=== PATIENT | male | born 1935 | race Caucasian/White ===

== ENCOUNTER 2017-02-26 13:24 | Inpatient (IN) | payer MEDICARE, BC ==
[~2017-02-26] VITALS: Ht 175.3 cm; Wt 83.9 kg
[2017-02-26] MEDS ORDERED: MAG HYDROX/AL HYDROX/SIMETH 30 ML LIQUID UDC PO ONE (13:45)
[2017-02-26] MEDS ORDERED: LIDOCAINE VISCUS 2% 15 ML UDC MM ONE (13:45)
[2017-02-26] MEDS ORDERED: ASPIRIN 81 MG TAB.CHEW PO ONE (13:45)
[2017-02-26 13:56] LABS: BASOPHILS % (AUTO) 0.2 % (0.0-2.0); HEMOGLOBIN 18.3 g/dL (12.5-16.3); LYMPHOCYTES % (AUTO) 5.5 % (20.5-51.5); MEAN CORPUSCULAR HEMOGLOBIN 32.5 uug (23.8-33.4); MEAN CORPUSCULAR HGB CONC 35 g/dL (32.5-36.3); MEAN CORPUSCULAR VOLUME 94.4 fL (73.0-96.2); MONOCYTES # (AUTO) 1.4 K/uL (2.0-10.0); MONOCYTES % (AUTO) 7.4 % (0.0-11.0); NEUTROPHILS # (AUTO) 16.6 K/uL (1.8-8.9); NEUTROPHILS % (AUTO) 86.9 % (38.5-71.5); PLATELET COUNT (AUTO) 171 K/uL (152-348); RED BLOOD CELL COUNT(AUTO) 5.61 MIL/uL (4.06-5.63)
[2017-02-26 13:58] LABS: WHITE BLOOD COUNT (AUTO) 19.1 K/uL (3.6-10.2)
[2017-02-26 14:00] LABS: CARBON DIOXIDE 27 mmol/L (21-32); CHLORIDE 101 mmol/L (98-107); CREATININE 2.3 mg/dL (0.6-1.3); GLUCOSE 241 mg/dL (74-106); POTASSIUM 4.8 mmol/L (3.5-5.1); UREA NITROGEN, BLOOD 32 mg/dL (7-18)
[2017-02-26] MEDS ORDERED: ASPIRIN 81 MG TAB.CHEW ONE (14:08)
[2017-02-26] MEDS ORDERED: LIDOCAINE VISCUS 2% 15 ML UDC ONE (14:08)
[2017-02-26] MEDS ORDERED: MAG HYDROX/AL HYDROX/SIMETH 30 ML LIQUID UDC ONE (14:08)
[2017-02-26] MEDS ORDERED: IV NORMAL SALINE 500 ML BAG IV ONE (14:15)
[2017-02-26 14:17] LABS: ALANINE AMINOTRANSFERASE 25 U/L (16-63); ALKALINE PHOSPHATASE 68 U/L (50-136); ASPARTATE AMINOTRANSFERASE 19 U/L (15-37); BILIRUBIN,DIRECT 0.3 mg/dL (0.0-0.2); BILIRUBIN,TOTAL 2.1 mg/dL (0.2-1.0); TOTAL PROTEIN, SERUM 8.2 g/dL (6.4-8.2)
[2017-02-26] MEDS ORDERED: RANO10003 PO (14:28)
[2017-02-26] MEDS ORDERED: ROSU10TA PO (14:28)
[2017-02-26] MEDS ORDERED: ASPI81TA31 PO (14:28)
[2017-02-26] MEDS ORDERED: OMEG1CAP PO (14:28)
[2017-02-26] MEDS ORDERED: AMLO5TAB2 PO (14:28)
[2017-02-26] MEDS ORDERED: SUPER B COMPLEX PO (14:28)
[2017-02-26] MEDS ORDERED: TAMS-3 PO (14:28)
[2017-02-26] MEDS ORDERED: CHOL10005 PO (14:28)
[2017-02-26] MEDS ORDERED: RANI-563 PO (14:28)
[2017-02-26] MEDS ORDERED: VALS320T2 PO (14:28)
[2017-02-26] MEDS ORDERED: LACT1CAP71 PO (14:28)
[2017-02-26] MEDS ORDERED: EMPA1TAB9 PO (14:28)
[2017-02-26] MEDS ORDERED: IMDUR PO (14:28)
[2017-02-26] MEDS ORDERED: ZOLP5TAB2 PO (14:28)
[2017-02-26 14:30] LABS: BAND % (MANUAL) 5 % (0-10); LYMPHOCYTES % (MANUAL) 5 % (20-40); MONOCYTES % (MANUAL) 6 % (2-10); NEUTROPHILS % (MANUAL) 84 % (42-75)
[2017-02-26 14:42] LABS: *BILIRUBIN,URIN NEGATIVE (NEGATIVE); *BLOOD, URINE Trace-lysed (NEGATIVE); *CLARITY,URINE CLEAR (CLEAR); *COLOR,URINE YELLOW (YELLOW); *KETONES,URINE 1+ (NEGATIVE); *PROTEIN,URINE 2+ (NEGATIVE); *UROBILINOGEN,URINE 0.2 E.U./dl (NORMAL); LEUKOCYTE ESTERASE ,URINE NEGATIVE (NEGATIVE); NITRITE, URINE NEGATIVE (NEGATIVE)
[2017-02-26 14:48] LABS: UGLUCOSE 2+ (NEGATIVE)
[2017-02-26 14:56] LABS: BACTERIA,URINE FEW /HPF (NONE SEEN); SQUAMOUS EPITHELIAL CELL,UR FEW /HPF (NONE SEEN)
[2017-02-26] MEDS ORDERED: ACETAMINOPHEN 325 MG TABLET PO PRN (15:00)
[2017-02-26] MEDS ORDERED: ONDANSETRON 4 MG/2 ML VIAL IV PRN (15:00)
--- NOTE | 2017-02-26 15:00 | NUR ---
Patient is resting comfortably on gurney while looking at his personal electronic device, NAD, no acute change in condition seen
[2017-02-26] MEDS ORDERED: DEXTROSE 50% 50 ML DISP.SYRIN IV PRN (15:45)
--- NOTE | 2017-02-26 15:47 | NUR ---
1535: DEJUAN [place] is at bedside & evaluating the patient.
[2017-02-26] MEDS ORDERED: NITROGLYCERIN 0.4 MG/TAB BOTTLE SL PRN (16:00)
[2017-02-26 16:04] VITALS: BP 160/80
[2017-02-26] MEDS ORDERED: CLONIDINE HCL 0.1 MG TABLET PO PRN (16:30)
[2017-02-26] MEDS: BLOOD SUGAR DIAGNOSTIC 1 EACH STRIP VI SCH ×2 (16:30→20:34)
--- NOTE | 2017-02-26 17:26 | NUR ---
pt received at 1600 from ER reporting nurse Ann LOPEZ. pt came in with a diagnosis of cchest pain. no chest pain noted when asked. pt vitals stable. all pertinent assessments, hx and general questions done. pt given smoking educatin and verbalizes understanding. pt recevied flu shot but has pneumonia shot scheduled in april. pt has no sob. pt labs drawn and charted. pt had echo done. awaiting results. pt has Left AC 20g. all belongings reconciled and put to asa.t no new injuries noted. pt states that he has indigestion and took a first bite of dinner and had chest pain for a few seconds. will await new orders.
[2017-02-26] MEDS: INSULIN REGULAR, HUMAN 300 UNIT/3 ML VIAL SQ PRN ×2 (17:37→20:36)
[2017-02-26] MEDS: OMEGA-3 FATTY ACIDS/FISH OIL CAPSULE PO SCH (17:37)
--- NOTE | 2017-02-26 17:45 | NUR ---
pt refused accu checks and humulin. pt rejects that he has history of dm. however pt state that he has prediabetes takes own medications from home. pt also had bp of 163/88. pt given catepres as ordered for bp >160. will reassess vitals.
[2017-02-26 20:00] VITALS: BP 126/71
[2017-02-26] MEDS: RANOLAZINE 500 MG TAB.ER.12H PO SCH (20:36)
[2017-02-26] MEDS: ATORVASTATIN 20 MG TABLET PO SCH (20:36)
--- NOTE | 2017-02-26 21:00 | NUR ---
PT'S A/A/O X4,NEWLY ADMISSION TODAY IN THE AFTERNOON W/DX OF CHEST PAIN,PER AM SHIFT RN REPORT STATED THAT PT REFUSED TO GET ANY ACCUCHECK AND INSULIN;REEDUCATED TO PT FOR DM EDUCATION;PT STATED THAT"I CHANGED MY MIND.I'LL GET TO CHECK BLOOD SUGAR AND INSULIN IF I NEED IT";UPDATED THE PLAN OF CARE TO PT;HE VERBALIZED UNDERSTANDING AND COOPERATIVE.PT DENIED OF PAIN OR ANY DISCOMFORT.TELEMETRY'S SR 88/MIN.CONTINUED MONITORING TO PT.
[2017-02-26] MEDS: ZOLPIDEM 5 MG TABLET PO PRN (21:38)
[2017-02-27] VITALS: BP 114/78
--- NOTE | 2017-02-27 | NUR ---
PT'S COMFORTABLE ON BED;DENIED OF PAIN OR ANY DISCOMFORT NOTED.KEPT COMFORT.CALL-LIGHT WITHIN REACH.TELEMETRY'S SR 90/MIN NOTED.
--- NOTE | 2017-02-27 01:40 | NUR ---
PT C/O ABDOMINAL PAIN,MOSTLY IT'S EPIGASTRIC PAIN 11/24;MORPHINE 2 MG IVP X1 TO PT;EDUCATED AND CONTINUED MONITORING TO PT.TELEMETRY'S SR 84/MIN.AFTER PT GOT FOR 15 MINUTES;PT WENT BACK TO SLEEP.CONTINUED MONITORING TO PT.
[2017-02-27] MEDS: MORPHINE SULFATE 2 MG/1 ML DISP.SYRIN IV PRN ×5 (01:41→21:38)
[2017-02-27 04:00] VITALS: BP 152/81
[2017-02-27] MEDS: PANTOPRAZOLE SODIUM 40 MG TABLET.DR PO SCH (06:07)
--- NOTE | 2017-02-27 06:15 | NUR ---
PT'S COMFORTABLE ON BED,DENIED OF PAIN AT THIS TIME.EDUCATED TO PT FOR KAN'S POSITION;PT AGREED AND STATED THAT IT'S BETTER.TELEMETRY'S SR 84/MIN W/RARELY OCCASIONAL PVC,PAC(PER SET UP AND CHARGER.).NO DISTRESS NOTED IN THE SHIFT,NO CHEST PAIN'S SEEN,PT STATED THAT IT'S EPIGASTRIC PAIN NOTED.CONTINUED MONITORING TO PT.
[2017-02-27] MEDS: BLOOD SUGAR DIAGNOSTIC 1 EACH STRIP VI SCH ×4 (06:35→20:33)
[2017-02-27 06:57] LABS: ALANINE AMINOTRANSFERASE 19 U/L (16-63); ALKALINE PHOSPHATASE 57 U/L (50-136); ASPARTATE AMINOTRANSFERASE 23 U/L (15-37); BILIRUBIN,TOTAL 1.8 mg/dL (0.2-1.0); CARBON DIOXIDE 24 mmol/L (21-32); CHLORIDE 101 mmol/L (98-107); CHOLESTEROL 119 mg/dL (<200); CREATININE 1.6 mg/dL (0.6-1.3); GLUCOSE 161 mg/dL (74-106); HDL CHOLESTEROL 55 mg/dL (40-60); MAGNESIUM 1.6 mg/dL (1.8-2.4); PHOSPHOROUS 2.4 mg/dL (2.5-4.9); POTASSIUM 4.2 mmol/L (3.5-5.1); TOTAL PROTEIN, SERUM 7.2 g/dL (6.4-8.2); TRIGLYCERIDES 149 MG/DL (30-150); UREA NITROGEN, BLOOD 28 mg/dL (7-18)
[2017-02-27 07:08] LABS: THYROID STIMULATING HORMONE 1.256 mIU/mL (0.358-3.740)
[2017-02-27 07:57] LABS: HEMATOCRIT 49.2 % (40-50); HEMOGLOBIN 17.2 G/DL (14.0-18.0); LYMPHOCYTES # (AUTO) 0.9 K/UL (0.8-4.8); LYMPHOCYTES % (AUTO) 4.9 % (20.5-51.5); MEAN CORPUSCULAR HGB CONC 35 g/dL (32.0-37.0); MEAN CORPUSCULAR VOLUME 94.2 FL (82.0-92.0); MONOCYTES # (AUTO) 1.6 K/UL (0.1-1.30); MONOCYTES % (AUTO) 8.2 % (0.0-11.0); NEUTROPHILS # (AUTO) 16.7 K/UL (1.8-8.9); NEUTROPHILS % (AUTO) 86.9 % (38.5-71.5); PLATELET COUNT (AUTO) 157 K/UL (150-450); RED BLOOD CELL COUNT(AUTO) 5.22 MIL/UL (4.7-6.1); WHITE BLOOD COUNT (AUTO) 19.2 K/UL (4.0-11.2)
[2017-02-27] MEDS ORDERED: Medication Not On Formulary EA (Lactobacillus Combo No.11 (Probiotic) 1 EACH) PO SCH (09:00)
[2017-02-27] MEDS ORDERED: EMPAGLIFLOZIN PO SCH (09:00)
[2017-02-27] MEDS ORDERED: RANITIDINE HCL 150 MG PO SCH (09:00)
[2017-02-27] MEDS ORDERED: Medication Not On Formulary EA (Rosuvastatin Calcium (Crestor) 1 TAB) PO SCH (09:00)
[2017-02-27] MEDS ORDERED: METFORMIN HCL PO SCH (09:00)
[2017-02-27] MEDS ORDERED: ASPIRIN 81 MG TAB.CHEW PO SCH (09:00)
[2017-02-27] MEDS ORDERED: [UNRECOGNIZED DRUG - OTHER] PO SCH (09:00)
[2017-02-27] MEDS ORDERED: Medication Not On Formulary EA (Cholecalciferol (Vitamin D3) (Vitamin D CAPSULE) 1 CAP) PO SCH (09:00)
[2017-02-27] MEDS: ASPIRIN EC 325 MG TABLET.DR PO SCH (09:34)
[2017-02-27] MEDS: ISOSORBIDE MONONITRATE 60 MG TAB.SR.24H PO SCH (09:35)
[2017-02-27] MEDS: OMEGA-3 FATTY ACIDS/FISH OIL CAPSULE PO SCH ×2 (09:36→17:52)
[2017-02-27] MEDS: TAMSULOSIN HCL 0.4 MG CAP.SR.24H PO SCH (09:36)
[2017-02-27] MEDS: AMLODIPINE 5 MG TABLET PO SCH (09:36)
[2017-02-27] MEDS: CHOLECALCIFEROL 1,000 UNIT TABLET PO SCH (09:36)
[2017-02-27] MEDS: LACTOBACILLUS RHAMNOSUS GG 1 EACH CAPSULE PO SCH (09:37)
[2017-02-27] MEDS: VALSARTAN 160 MG TABLET PO SCH (09:37)
[2017-02-27] MEDS: RANOLAZINE 500 MG TAB.ER.12H PO SCH ×2 (09:38→20:37)
[2017-02-27] MEDS ORDERED: NEUTRA PHOS PACKET PO ONE (10:15)
[2017-02-27] MEDS ORDERED: MAGNESIUM SULFATE/D5W 100 ML IV SCH (10:15)
[2017-02-27] MEDS ORDERED: MAG HYDROX/AL HYDROX/SIMETH 30 ML LIQUID UDC PO ONE (11:00)
[2017-02-27 11:54] VITALS: BP 126/69
[2017-02-27 12:05] LABS: BAND % (MANUAL) 10 % (0-10); LYMPHOCYTES % (MANUAL) 5 % (20-40); MONOCYTES % (MANUAL) 9 % (2-10); NEUTROPHILS % (MANUAL) 76 % (42-75)
[2017-02-27] MEDS: INSULIN REGULAR, HUMAN 300 UNIT/3 ML VIAL SQ PRN ×3 (13:08→20:37)
[2017-02-27] MEDS ORDERED: MAG30ORA PO (14:20)
[2017-02-27] MEDS ORDERED: MAG HYDROX/AL HYDROX/SIMETH 30 ML LIQUID UDC PO PRN (14:30)
[2017-02-27 15:29] VITALS: BP 83/52
--- NOTE | 2017-02-27 18:00 | NUR ---
Pt resting in bed and getting up to bathroom with standby assist. Tele rythm remains NSR. Pt. medicated with Morphine IV with good effect for the epigastric pain. Pt. encouraged to drink and eat soft foods and also encourage to do active ROM in bed. Voiding well. Denies cp or sob.
[2017-02-27 19:08] LABS: *AMPHETAMINE, URINE NEGATIVE (NEGATIVE); *BARBITURATE, URINE NEGATIVE (NEGATIVE); *CANNABINOID, URINE POSITIVE (NEGATIVE); *COCCAINE, URINE NEGATIVE (NEGATIVE); *OPIATE, URINE NEGATIVE (NEGATIVE); *PHENCYCLIDINE SCREEN,URINE NEGATIVE (NEGATIVE)
--- NOTE | 2017-02-27 19:10 | NUR ---
Received patient in bed, awake, watching TV at this time. Denies any pain/discomforts. Continue current plan of care.
[2017-02-27] MEDS ORDERED: IV NORMAL SALINE 500 ML BAG IV STA (20:15)
--- NOTE | 2017-02-27 20:15 | NUR ---
BP on the 80's, asymptomatic. made aware with order to give NS 500ml IV bolus stat.
[2017-02-27] MEDS ORDERED: IV NORMAL SALINE 500 ML IV ONE (20:30)
[2017-02-27] MEDS: ATORVASTATIN 20 MG TABLET PO SCH (20:37)
[2017-02-27 20:42] VITALS: BP 103/60
--- NOTE | 2017-02-27 21:20 | NUR ---
BP rechecked 103/69.
--- NOTE | 2017-02-27 21:35 | NUR ---
Medicated for complaint of CP non radiating in scale of 6/10. will monitor.
--- NOTE | 2017-02-27 22:05 | NUR ---
Sleeping at this time. No s/s of pain/discomforts presented.
[2017-02-28] VITALS: BP 94/54
[2017-02-28 04:00] VITALS: BP 93/60
--- NOTE | 2017-02-28 05:23 | NUR ---
Slept well. No further complaint presented. BP on the mid 90's. Converted to [facility]. All needs attended and met. Continue current plan of care.
[2017-02-28] MEDS: BLOOD SUGAR DIAGNOSTIC 1 EACH STRIP VI SCH ×4 (05:53→20:20)
[2017-02-28] MEDS: PANTOPRAZOLE SODIUM 40 MG TABLET.DR PO SCH (05:53)
[2017-02-28] MEDS: MORPHINE SULFATE 2 MG/1 ML DISP.SYRIN IV PRN ×4 (06:03→22:23)
--- NOTE | 2017-02-28 06:10 | NUR ---
Awakened complaining of chest pain, non radiating, morphine requested, given as needed and ordered.
[2017-02-28 06:47] LABS: BASOPHILS % (AUTO) 0.1 % (0.0-2.0); EOSINOPHILS % (AUTO) 0.3 % (0.0-7.0); HEMATOCRIT 46.3 % (40-50); LYMPHOCYTES # (AUTO) 1.2 K/UL (0.8-4.8); LYMPHOCYTES % (AUTO) 8.8 % (20.5-51.5); MEAN CORPUSCULAR HEMOGLOBIN 32.4 UUG (27.0-31.0); MEAN CORPUSCULAR HGB CONC 35 g/dL (32.0-37.0); MEAN CORPUSCULAR VOLUME 93.8 FL (82.0-92.0); MONOCYTES # (AUTO) 1.4 K/UL (0.1-1.30); MONOCYTES % (AUTO) 10.1 % (0.0-11.0); NEUTROPHILS # (AUTO) 10.9 K/UL (1.8-8.9); NEUTROPHILS % (AUTO) 80.7 % (38.5-71.5); PLATELET COUNT (AUTO) 134 K/UL (150-450); RED BLOOD CELL COUNT(AUTO) 4.94 MIL/UL (4.7-6.1)
[2017-02-28 06:50] LABS: ALANINE AMINOTRANSFERASE 17 U/L (16-63); ALKALINE PHOSPHATASE 55 U/L (50-136); ASPARTATE AMINOTRANSFERASE 14 U/L (15-37); BILIRUBIN,TOTAL 1.8 mg/dL (0.2-1.0); CARBON DIOXIDE 26 mmol/L (21-32); CHLORIDE 101 mmol/L (98-107); CREATININE 1.7 mg/dL (0.6-1.3); GLUCOSE 144 mg/dL (74-106); PHOSPHOROUS 2.7 mg/dL (2.5-4.9); POTASSIUM 3.8 mmol/L (3.5-5.1); TOTAL PROTEIN, SERUM 6.5 g/dL (6.4-8.2); UREA NITROGEN, BLOOD 28 mg/dL (7-18)
[2017-02-28 07:15] LABS: WHITE BLOOD COUNT (AUTO) 13.6 K/UL (4.0-11.2)
--- NOTE | 2017-02-28 07:16 | NUR ---
Received patient asleep, lying on bed on a semi- goodman's position, easily aroused with no SOB distress or discomforts noted. all needs attended and anticipated call light within reach. Will continue to monitor closely.
[2017-02-28] MEDS: OMEGA-3 FATTY ACIDS/FISH OIL CAPSULE PO SCH ×2 (08:49→16:59)
[2017-02-28] MEDS: CHOLECALCIFEROL 1,000 UNIT TABLET PO SCH (08:50)
[2017-02-28] MEDS: ASPIRIN EC 325 MG TABLET.DR PO SCH (08:50)
[2017-02-28] MEDS: RANOLAZINE 500 MG TAB.ER.12H PO SCH ×2 (08:50→20:14)
[2017-02-28] MEDS: LACTOBACILLUS RHAMNOSUS GG 1 EACH CAPSULE PO SCH (08:50)
[2017-02-28] MEDS: TAMSULOSIN HCL 0.4 MG CAP.SR.24H PO SCH (08:50)
[2017-02-28] MEDS: ISOSORBIDE MONONITRATE 60 MG TAB.SR.24H PO SCH (09:00)
[2017-02-28] MEDS: AMLODIPINE 5 MG TABLET PO SCH (09:00)
[2017-02-28] MEDS: VALSARTAN 160 MG TABLET PO SCH (09:00)
[2017-02-28] MEDS ORDERED: HEPARIN SODIUM,PORCINE 5,000 UNITS/ML VIAL SQ SCH (10:00)
--- NOTE | 2017-02-28 10:01 | NUR ---
Patient was seen and examined by Latonia James NP with new orders for CT Scan Abdomen/ Pelvis without contrast, Heparin and discontinue Aspirin. patient made aware and agreed to perform the procedure. Orders noted and carried out.
--- NOTE | 2017-02-28 10:21 | NUR ---
Patient awake alert and oriented was picked up by Radiology department for his CT Scan of Abdomen/ Pelvis without contrast as ordered in stable condition, no SOB, distress or discomforts.
--- NOTE | 2017-02-28 10:45 | NUR ---
Patient came back from radiology department via wheelchair accompanied by Radiology staff in stable condition, No SOB or distress noted. Will continue to monitor closely.
[2017-02-28 11:30] VITALS: BP 114/61
[2017-02-28] MEDS ORDERED: LIDOCAINE VISCUS 2% 15 ML UDC PO PRN (12:15)
[2017-02-28] MEDS ORDERED: MAG HYDROX/AL HYDROX/SIMETH 30 ML LIQUID UDC PO PRN (12:15)
[2017-02-28] MEDS: PIPERACILLIN/TAZOBACTAM/D5W 3.375 G in PREMIXED 1 EACH IV SCH ×2 (12:16→20:02)
[2017-02-28] MEDS: INSULIN REGULAR, HUMAN 300 UNIT/3 ML VIAL SQ PRN ×3 (12:52→20:22)
--- NOTE | 2017-02-28 15:44 | NUR ---
Rounds done, patient noted asleep, lying on bed on a semi- goodman's position, easily aroused, no moaning, facial grimace or distress noted. All needs were attended and anticipated. Call light within reach.Will continue to monitor closely.
[2017-02-28 15:57] VITALS: BP 107/63
--- NOTE | 2017-02-28 16:00 | NUR ---
Received CT Scan Abd/ Pelvis without contrast result. called Latonia James NP and reported the result.
[2017-02-28] MEDS ORDERED: RIVAROXABAN 10 MG TABLET PO SCH (18:00)
[2017-02-28] MEDS ORDERED: RIVAROXABAN 15 MG TABLET PO SCH (18:00)
--- NOTE | 2017-02-28 18:39 | NUR ---
Patient noted asleep, easily aroused with call light within reach. Patient denies any pain or any discomforts. All needs attended and anticipated. Encouraged patient to use call light whenever assistance is needed. Will continue to monitor.
[2017-02-28 19:42] VITALS: BP 107/69
[2017-02-28] MEDS: ATORVASTATIN 20 MG TABLET PO SCH (20:14)
[2017-03-01] VITALS: BP 111/60
[2017-03-01] MEDS: ZOLPIDEM 5 MG TABLET PO PRN (00:19)
[2017-03-01 04:00] VITALS: BP 101/50
[2017-03-01] MEDS: PIPERACILLIN/TAZOBACTAM/D5W 3.375 G in PREMIXED 1 EACH IV SCH ×2 (04:30→12:19)
[2017-03-01] MEDS: PANTOPRAZOLE SODIUM 40 MG TABLET.DR PO SCH (06:07)
[2017-03-01 06:09] LABS: BASOPHILS % (AUTO) 0.4 % (0.0-2.0); EOSINOPHILS # (AUTO) 0.1 K/uL (0.0-0.7); EOSINOPHILS % (AUTO) 0.7 % (0.0-7.0); HEMATOCRIT 49.2 % (40-50); HEMOGLOBIN 16.8 G/DL (14.0-18.0); LYMPHOCYTES # (AUTO) 0.9 K/UL (0.8-4.8); LYMPHOCYTES % (AUTO) 9.8 % (20.5-51.5); MEAN CORPUSCULAR HEMOGLOBIN 31.9 UUG (27.0-31.0); MEAN CORPUSCULAR HGB CONC 34 g/dL (32.0-37.0); MEAN CORPUSCULAR VOLUME 93.3 FL (82.0-92.0); MONOCYTES # (AUTO) 1.1 K/UL (0.1-1.30); MONOCYTES % (AUTO) 11.2 % (0.0-11.0); NEUTROPHILS # (AUTO) 7.5 K/UL (1.8-8.9); NEUTROPHILS % (AUTO) 77.9 % (38.5-71.5); PLATELET COUNT (AUTO) 148 K/UL (150-450); RED BLOOD CELL COUNT(AUTO) 5.27 MIL/UL (4.7-6.1)
[2017-03-01] MEDS: BLOOD SUGAR DIAGNOSTIC 1 EACH STRIP VI SCH ×2 (06:11→12:09)
[2017-03-01 06:39] LABS: WHITE BLOOD COUNT (AUTO) 9.6 K/UL (4.0-11.2)
[2017-03-01 06:41] LABS: ALANINE AMINOTRANSFERASE 18 U/L (16-63); ALKALINE PHOSPHATASE 58 U/L (50-136); ASPARTATE AMINOTRANSFERASE 14 U/L (15-37); BILIRUBIN,TOTAL 1.6 mg/dL (0.2-1.0); CARBON DIOXIDE 24 mmol/L (21-32); CHLORIDE 103 mmol/L (98-107); CREATININE 1.6 mg/dL (0.6-1.3); GLUCOSE 130 mg/dL (74-106); MAGNESIUM 2.1 mg/dL (1.8-2.4); PHOSPHOROUS 3.1 mg/dL (2.5-4.9); POTASSIUM 3.7 mmol/L (3.5-5.1); TOTAL PROTEIN, SERUM 6.4 g/dL (6.4-8.2); UREA NITROGEN, BLOOD 27 mg/dL (7-18)
--- NOTE | 2017-03-01 07:15 | NUR ---
Patient noted asleep, lying on bed on a semi- goodman's position with no signs and symptoms of distress or discomforts at this time. Easily aroused. Alert and oriented, responsive to both verbal and tactile stimuli. All needs attended and anticipated. Call light within reach. Will continue to monitor patient closely.
[2017-03-01] MEDS: OMEGA-3 FATTY ACIDS/FISH OIL CAPSULE PO SCH (08:58)
[2017-03-01] MEDS: RANOLAZINE 500 MG TAB.ER.12H PO SCH (08:59)
[2017-03-01] MEDS: ISOSORBIDE MONONITRATE 60 MG TAB.SR.24H PO SCH (08:59)
[2017-03-01] MEDS: TAMSULOSIN HCL 0.4 MG CAP.SR.24H PO SCH (08:59)
[2017-03-01] MEDS: LACTOBACILLUS RHAMNOSUS GG 1 EACH CAPSULE PO SCH (08:59)
[2017-03-01] MEDS: CHOLECALCIFEROL 1,000 UNIT TABLET PO SCH (08:59)
--- NOTE | 2017-03-01 10:00 | NUR ---
Patient noted awake, lying on bed with no SOB or any signs and symptoms of distress. All his needs were attended and anticipated. Assisted the patient to go to the bathroom,, without difficulty. Assisted back the patient to bed, call light placed within his reach. patient was encouraged to use the call light whenever assistance is needed. Will continue to monitor closely.
[2017-03-01] MEDS ORDERED: RIVA15TA PO (11:00)
[2017-03-01] MEDS ORDERED: LACT1CAP57 PO (11:00)
[2017-03-01] MEDS ORDERED: PANT40TA2 PO (11:03)
[2017-03-01] MEDS ORDERED: AMLO5TAB2 PO ×2 (11:08→11:09)
[2017-03-01] MEDS ORDERED: VALS320T2 PO ×2 (11:08→11:09)
[2017-03-01 11:52] VITALS: BP 113/62
--- NOTE | 2017-03-01 12:00 | NUR ---
patient noted awake resting on bed on a semi- goodman's position with family members at bedside. All needs were attended and anticipated. Will continue to monitor.
[2017-03-01] MEDS: MORPHINE SULFATE 2 MG/1 ML DISP.SYRIN IV PRN (12:36)
[2017-03-01] MEDS: INSULIN REGULAR, HUMAN 300 UNIT/3 ML VIAL SQ PRN (12:47)
[2017-03-01] MEDS ORDERED: ASPI-605 PO (14:06)
--- NOTE | 2017-03-01 14:09 | NUR ---
Received new order from Latonia James NP that patient can be discharged home. Patient made aware and was very appreciative and happy of the order. Noted and carried out.
--- NOTE | 2017-03-01 15:30 | NUR ---
Patient was discharged home in stable condition, picked up by family with all belongings complete. No missing items. health teachings were given and provided by pharmacist, patient verbalized understanding. denies any pain or discomforts. Patient was accompanied by [employer] SUPERVISOR to private vehicle.
== END 2017-03-01 15:22 | disposition home or self-care (01) | DRG 280 ==
LOC: ER 13:24 → TELE 15:20
PROVIDERS: ADMIT Internal Medicine; ATTEND Internal Medicine
DX: I21.4 Non-ST elevation (NSTEMI) myocardial infarction (principal); N17.0 Acute kidney failure with tubular necrosis; E44.0 Moderate protein-calorie malnutrition; E11.22 Type 2 diabetes mellitus with diabetic chronic kidney disease; D69.6 Thrombocytopenia, unspecified; D75.1 Secondary polycythemia; I48.91 Unspecified atrial fibrillation; E11.65 Type 2 diabetes mellitus with hyperglycemia; I13.0 Hypertensive heart and chronic kidney disease with heart failure and stage 1 through stage 4 chronic kidney disease, or unspecified chronic kidney disease; I50.22 Chronic systolic (congestive) heart failure; K21.9 Gastro-esophageal reflux disease without esophagitis; E83.42 Hypomagnesemia; Z95.1 Presence of aortocoronary bypass graft; F12.980 Cannabis use, unspecified with anxiety disorder; F41.9 Anxiety disorder, unspecified; G47.30 Sleep apnea, unspecified; I25.10 Atherosclerotic heart disease of native coronary artery without angina pectoris; Z85.46 Personal history of malignant neoplasm of prostate; Z87.442 Personal history of urinary calculi; M79.7 Fibromyalgia; Z79.82 Long term (current) use of aspirin; Z79.84 Long term (current) use of oral hypoglycemic drugs; N18.9 Chronic kidney disease, unspecified; F90.9 Attention-deficit hyperactivity disorder, unspecified type; I70.0 Atherosclerosis of aorta; Z92.3 Personal history of irradiation; N40.0 Benign prostatic hyperplasia without lower urinary tract symptoms; K57.90 Diverticulosis of intestine, part unspecified, without perforation or abscess without bleeding; K80.20 Calculus of gallbladder without cholecystitis without obstruction; I35.1 Nonrheumatic aortic (valve) insufficiency; N28.1 Cyst of kidney, acquired; E78.5 Hyperlipidemia, unspecified; Z68.27 Body mass index [BMI] 27.0-27.9, adult; D72.829 Elevated white blood cell count, unspecified; E83.52 Hypercalcemia; M50.30 Other cervical disc degeneration, unspecified cervical region; M51.36 Other intervertebral disc degeneration, lumbar region; E86.0 Dehydration; E83.39 Other disorders of phosphorus metabolism
CPT/HCPCS: 36415; 70030-TC; 71010; 71250; 80307; 83735; 84100; 84443; 85025; 85730; 87086; 93005; 93307; A4663; J1644; J1815; J2270; J2543; J3475; J7040; J7050